=== PATIENT | male | born 1950 | race Caucasian/White ===

== ENCOUNTER 2018-09-19 11:13 | Inpatient (IN) | payer BC, MEDICARE ==
[2018-09-19] MEDS ORDERED: TYLENOL 325 MG PO PRN (12:18)
[2018-09-19] MEDS: Sodium Chloride 0.9% 1000 ML 1,000 ML IV SCH ×2 (12:47→23:23)
[2018-09-19 12:59] LABS: Hematocrit 44.9 % (42-50); Hemoglobin 15.4 gm/dl (12.5-18.0); Mean Cell Volume 90.2 fl (78-100); Mean Corpuscular Hemoglobin 30.9 pg (26-32); Mean Corpuscular Hgb Concent. 34.3 g/dl (32-36); Mean Platelet Volume 10.8 fl (6-9.5); Platelet Count 257 K/mm3 (150-450); Red Blood Count 4.98 M/mm3 (4.1-5.6); Red Cell Distribution Width 12.6 % (11.5-14.0); White Blood Count 11.3 K/mm3 (4.0-10.5)
[2018-09-19 13:22] LABS: ALBUMIN 4.5 g/dL (3.5-5.0); ALKALINE PHOSPHATASE 58 U/L (38-126); AMYLASE 60 U/L (30-110); ANION GAP 15.3 MEQ/L (5-15); BLOOD UREA NITROGEN 14 mg/dL (9-20); CHLORIDE 102 mmol/L (98-107); Calcium 9.7 mg/dL (8.4-10.2); Carbon Dioxide 25 mmol/L (22-30); Creatinine 1 0.96 mg/dL (0.66-1.25); Glucose 156 mg/dL (74-106); LIPASE 91 U/L (23-300); Potassium 4.1 mmol/L (3.5-5.1); SGOT/AST 38 U/L (17-59); SGPT/ALT 42 U/L (0-50); SODIUM 138 mmol/L (137-145); Total Protein 7.4 g/dL (6.3-8.2)
[2018-09-19 14:14] LABS: Lymphocytes 40 % (24-44); Monocyte 5 % (0.0-12.0); Neutrophils 55 % (36.-66.); Total Cells Counted 100
[2018-09-19 14:15] LABS: Platelet Estimate NORMAL (NORMAL)
--- NOTE | 2018-09-19 14:25 | XRAY ---
Indication: Intermittent left lower quadrant pain for many years. Multiple contiguous axial images obtained through the abdomen and pelvis using 80 cc Isovue 370 contrast only as ordered. Comparison: None Lung bases demonstrates minimal bibasilar atelectasis. No infiltrate or effusion. Heart is not enlarged. Small hiatal hernia. Noncontrasted stomach and bowel loops appear nonobstructed. Previous reported appendectomy and cholecystectomy. Mild scattered descending and sigmoid diverticulosis. Distal descending and proximal sigmoid colon demonstrates segment of wall thickening with pericolonic stranding favoring acute diverticulitis. No free fluid/air. Mild diffuse fatty liver. Tiny calcified splenic granulomas. Left mid abdomen demonstrates a few small subcentimeter mesenteric nodes with minimal mesenteric stranding, possible mesenteric adenitis. Remaining liver, pancreas, spleen, adrenal glands, kidneys, ureters, and bladder appear unremarkable. Mild aortoiliac calcifications. No AAA or pathologic retroperitoneal lymphadenopathy. Osseous structures intact with moderate/advanced multilevel degenerative spondylosis throughout the thoracolumbar spine. Small fatty umbilical hernia. Impression: 1. Colonic diverticulosis with acute diverticulitis in the distal descending/proximal sigmoid colon. No complications. 2. Left mid abdomen small mesenteric nodes with stranding favoring mesenteric adenitis. 3. Incidental fatty liver, small hiatal hernia, and small fatty umbilical hernia. CT DI 23.65
[2018-09-19] MEDS ORDERED: MORPHINE SULFATE 2 MG INJ IV PRN (15:17)
[2018-09-19] MEDS: FLAGYL 500 MG IVPB 500 MG/100 ML BAG IV SCH ×2 (17:11→23:23)
[2018-09-20] MEDS: FLAGYL 500 MG IVPB 500 MG/100 ML BAG IV SCH ×3 (05:25→17:42)
[2018-09-20] MEDS ORDERED: NON-FORMULARY ITEM (Rosuvastatin Calcium [Rosuvastatin Calcium] 20 MG) PO SCH (10:00)
[2018-09-20] MEDS ORDERED: NON-FORMULARY ITEM (Multivitamin [Daily Multivitamin] 1 EACH) PO SCH (10:00)
[2018-09-20] MEDS: ECOTRIN 81 MG PO SCH (10:15)
[2018-09-20] MEDS: NORVASC 5 MG PO SCH (10:15)
[2018-09-20] MEDS: Cordarone 200 MG PO SCH (10:15)
[2018-09-20] MEDS: Paxil 20 MG PO SCH (10:15)
[2018-09-20] MEDS: ZOCOR 20MG PO SCH (10:16)
[2018-09-20] MEDS: THERAGRAN MULTIVITAMIN PO SCH (10:16)
[2018-09-20] MEDS: SYNTHROID 75 MCG PO SCH (10:16)
[2018-09-20] MEDS: Protonix 40MG Tablet PO SCH (10:16)
[2018-09-20] MEDS: Sodium Chloride 0.9% 1000 ML 1,000 ML IV SCH ×2 (10:47→20:58)
--- NOTE | 2018-09-20 12:20 | PCM.NOTE ---
Date and Time: 09/20/18 1219 Subjective Assessment: doing better - Review of Systems Constitutional: No Fever, No Chills Eyes: No Symptoms Ears, Nose, & Throat: No Symptoms Respiratory: No Cough, No Short Of Breath Cardiac: No Chest Pain, No Edema, No Syncope Abdominal/Gastrointestinal: No Abdominal Pain, No Nausea, No Vomiting, No Diarrhea Genitourinary Symptoms: No Dysuria Musculoskeletal: No Back Pain, No Neck Pain Skin: No Rash Neurological: No Dizziness, No Focal Weakness, No Sensory Changes Psychological: No Symptoms Endocrine: No Symptoms Hematologic/Lymphatic: No Symptoms Immunological/Allergic: No Symptoms Objective Exam General Appearance: no apparent distress, alert Neurologic Exam: alert, oriented x 3, cooperative, normal mood/affect, nml cerebellar function, sensation nml, No motor deficits Skin Exam: normal color, warm, dry Eye Exam: PERRL, EOMI, eyes nml inspection Ears, Nose, Throat Exam: normal ENT inspection, pharynx normal, moist mucous membranes Neck Exam: normal inspection, non-tender, supple, full range of motion Respiratory Exam: normal breath sounds, lungs clear, No respiratory distress Cardiovascular Exam: regular rate/rhythm, normal heart sounds Gastrointestinal/Abdomen Exam: soft, No tenderness, No mass Extremity Exam: normal inspection, normal range of motion Back Exam: normal inspection, normal range of motion, No CVA tenderness, No vertebral tenderness Male Genitalia Exam: deferred Rectal Exam: deferred OBJECTIVE DATA Vital Signs: Vital Signs - 24 hr Temp Pulse Resp BP Pulse Ox 09/20/18 10:54 98.1 F 66 20 128/77 97 09/20/18 07:03 97.8 F 64 20 127/74 98 09/20/18 04:10 98.0 F 62 16 127/72 95 09/19/18 23:53 98.9 F 67 20 132/76 96 09/19/18 20:03 98.3 F 76 22 132/79 94 L 09/19/18 16:00 97.8 F 69 20 140/81 94 L 09/19/18 14:44 95 09/19/18 12:57 98 F 84 20 140/70 94 L 09/19/18 12:27 98 F 84 18 140/90 94 L Pain Assessment - Last Documented Pain Intensity 1 Pain Scale Used 0-10 Pain Scale Intake and Output: Intake & Output 1009/19/18 09/20/18 09/21/18 11:59 11:59 11:59 11:59 Intake Total 1344 0 Output Total 1900 300 Balance -556 -300 Weight 102 kg Lab Results: Lab Results-Last 24 Hours 09/19/18 09/19/18 Range/Units 13:00 13:00 WBC 11.3 H (4.0-10.5) K/mm3 RBC 4.98 (4.1-5.6) M/mm3 Hgb 15.4 (12.5-18.0) gm/dl Hct 44.9 (42-50) % MCV 90.2 (78-100) fl MCH 30.9 (26-32) pg MCHC 34.3 (32-36) g/dl RDW 12.6 (11.5-14.0) % Plt Count 257 (150-450) K/mm3 MPV 10.8 H (6-9.5) fl Segmented Neutrophils 55 (36.-66.) % Lymphocytes (Manual) 40 (24-44) % Monocytes (Manual) 5 (0.0-12.0) % Platelet Estimate NORMAL (NORMAL) RBC Morphology NORMAL Sodium 138 (137-145) mmol/L Potassium 4.1 (3.5-5.1) mmol/L Chloride 102 (98-107) mmol/L Carbon Dioxide 25 (22-30) mmol/L Anion Gap 15.3 H (5-15) MEQ/L BUN 14 (9-20) mg/dL Creatinine 0.96 (0.66-1.25) mg/dL Estimated GFR > 60.0 ML/MIN Glucose 156 H (74-106) mg/dL Calcium 9.7 (8.4-10.2) mg/dL Total Bilirubin 1.10 (0.2-1.3) mg/dL AST 38 (17-59) U/L ALT 42 (0-50) U/L Alkaline Phosphatase 58 (38-126) U/L Serum Total Protein 7.4 (6.3-8.2) g/dL Albumin 4.5 (3.5-5.0) g/dL Amylase 60 (30-110) U/L Lipase 91 (23-300) U/L Radiology Exams: Radiology Procedures Category Date Time Status ABDOMEN AND PELVIS W CONTRAST [CT] Stat Exams 09/19/18 12:18 Completed Multi-Disciplinary Progress Notes: Multi-Disciplinary Progress Notes 09/19/18 14:51 Case Management Note by Maribel Metcalf CALLED DR. NICOLÁS MCKEON, LEFT A MESSAGE TO PLEASE CALL BACK REGARDING ATB AND PAIN MEDICATION, R/T TO THE CT ABD/PELVIS RESULTS OF ACUTE DIVERTICULITIS AND PROBABLE MESSENTERIC ADENITIS, . ALSO QUESTION TO CHANGING PATIENT TO INPATIENT Initialized on 09/19/18 14:51 - END OF NOTE Assessment/Plan (1) Diverticulitis large intestine Current Visit: Yes Status: Acute Qualifiers: Diverticulitis bleeding: without bleeding Diverticulitis complication: without perforation or abscess Qualified Code(s): K57.32 - Diverticulitis of large intestine without perforation or abscess without bleeding Code(s): K57.32 - DVTRCLI OF LG INT W/O PERFORATION OR ABSCESS W/O BLEEDING
[2018-09-20] MEDS ORDERED: Zofran 4 MG/2 ML VIAL IV PRN (15:03)
[2018-09-21] MEDS: FLAGYL 500 MG IVPB 500 MG/100 ML BAG IV SCH ×2 (00:10→06:12)
[2018-09-21 07:11] VITALS: BP 141/80; PULSE 63; O2SAT 95
[2018-09-21] MEDS: Sodium Chloride 0.9% 1000 ML 1,000 ML IV SCH (09:05)
[2018-09-21] MEDS: ECOTRIN 81 MG PO SCH (09:06)
[2018-09-21] MEDS: NORVASC 5 MG PO SCH (09:06)
[2018-09-21] MEDS: Cordarone 200 MG PO SCH (09:06)
[2018-09-21] MEDS: SYNTHROID 75 MCG PO SCH (09:07)
[2018-09-21] MEDS: Paxil 20 MG PO SCH (09:07)
[2018-09-21] MEDS: THERAGRAN MULTIVITAMIN PO SCH (09:07)
[2018-09-21] MEDS: ZOCOR 20MG PO SCH (09:07)
[2018-09-21] MEDS: Protonix 40MG Tablet PO SCH (09:07)
[2018-09-21 09:41] LABS: Hematocrit 42.7 % (42-50); Hemoglobin 14.6 gm/dl (12.5-18.0); Mean Cell Volume 91.4 fl (78-100); Mean Corpuscular Hemoglobin 31.3 pg (26-32); Mean Corpuscular Hgb Concent. 34.2 g/dl (32-36); Mean Platelet Volume 10.7 fl (6-9.5); Platelet Count 232 K/mm3 (150-450); Red Blood Count 4.67 M/mm3 (4.1-5.6); Red Cell Distribution Width 12.6 % (11.5-14.0); White Blood Count 6.2 K/mm3 (4.0-10.5)
[2018-09-21 10:07] LABS: ALKALINE PHOSPHATASE 51 U/L (38-126); ANION GAP 14.4 MEQ/L (5-15); BLOOD UREA NITROGEN 11 mg/dL (9-20); CHLORIDE 104 mmol/L (98-107); Calcium 8.9 mg/dL (8.4-10.2); Carbon Dioxide 22 mmol/L (22-30); Creatinine 1 0.89 mg/dL (0.66-1.25); Glucose 232 mg/dL (74-106); SGOT/AST 54 U/L (17-59); SGPT/ALT 38 U/L (0-50); SODIUM 136 mmol/L (137-145); Total Protein 6.6 g/dL (6.3-8.2)
== END 2018-09-21 11:35 | disposition home or self-care (01) | DRG 392 ==
LOC: MED SURG 12:08 → OBSVTOIN 12:08
PROVIDERS: ADMIT General Practice; ATTEND General Practice
DX: K57.32 Diverticulitis of large intestine without perforation or abscess without bleeding (principal); R10.32 Left lower quadrant pain; I10 Essential (primary) hypertension; E78.00 Pure hypercholesterolemia, unspecified; E03.9 Hypothyroidism, unspecified; K21.9 Gastro-esophageal reflux disease without esophagitis; I25.2 Old myocardial infarction; J45.909 Unspecified asthma, uncomplicated; I25.10 Atherosclerotic heart disease of native coronary artery without angina pectoris; G47.30 Sleep apnea, unspecified; N40.0 Benign prostatic hyperplasia without lower urinary tract symptoms; Z79.899 Other long term (current) drug therapy; Z23 Encounter for immunization
CPT/HCPCS: 36415; 74177; 80053; 82150; 83690; 85025; 85027; 90662; 94760; G0008; J2405; Q9967; A9270-GY